=== PATIENT | female | born 1970 | race African-American/Black ===

== ENCOUNTER → 2016-06-23 | Outpatient (CLI) | payer OTHER ==
[~2016-06-23] MED LIST: CETI10TA84 PO; FOLI1TAB7 PO; LEVO25TA PO; METH2.5T PO; PRED-301 PO
[2016-06-23 12:29] LABS: BASO % 0.1 %; BASO ABS # 0.01 K/uL (0-0.2); COMPLETE YES; EOS % 3.1 %; HEMATOCRIT 43.6 % (37-47); IG% 0.2 %; LYMPH % 25.2 %; LYMPH ABS # 2.37 K/uL (1.2-3.4); MEAN CORPUSCULAR HEMOGLOBIN 30.6 pg (25-34); MEAN CORPUSCULAR HGB CONC 33.3 g/dl (32-36); MEAN PLATELET VOLUME 10.7 fL (7.4-10.4); MONO % 6.9 %; NEUT % 64.5 %; PLATELET COUNT 303 K/uL (130-400); RED BLOOD COUNT 4.74 M/uL (4.2-5.4); WHITE BLOOD COUNT 9.41 K/uL (4.8-10.8)
[2016-06-23 13:19] LABS: ALT/SGPT 43 U/L (12-78); CREATININE 0.95 mg/dl (0.60-1.20)
[2016-06-23 13:22] LABS: ALKALINE PHOSPHATASE 78 U/L (45-117); AST/SGOT 30 U/L (15-37)
== END | disposition home or self-care (01) ==
LOC: C.LAB1850 10:10
PROVIDERS: ATTEND Internal Medicine Rheumatology
DX: M06.9 Rheumatoid arthritis, unspecified (principal); M22.2X9 Patellofemoral disorders, unspecified knee; M25.561 Pain in right knee; Z79.899 Other long term (current) drug therapy

== ENCOUNTER → 2016-10-16 | Outpatient (CLI) | payer OTHER ==
[2016-10-16 10:47] LABS: BASO % 0.1 %; BASO ABS # 0.01 K/uL (0-0.2); COMPLETE YES; EOS % 1.3 %; HEMATOCRIT 43.1 % (37-47); IG% 0.4 %; LYMPH % 16.9 %; LYMPH ABS # 1.93 K/uL (1.2-3.4); MEAN CELL VOLUME 90.7 fL (80-100); MEAN CORPUSCULAR HEMOGLOBIN 31.4 pg (25-34); MEAN CORPUSCULAR HGB CONC 34.6 g/dl (32-36); MEAN PLATELET VOLUME 10.6 fL (7.4-10.4); MONO % 4.4 %; NEUT % 76.9 %; PLATELET COUNT 283 K/uL (130-400); RED BLOOD COUNT 4.75 M/uL (4.2-5.4); WHITE BLOOD COUNT 11.42 K/uL (4.8-10.8)
[2016-10-16 11:22] LABS: ALT/SGPT 32 U/L (12-78); CREATININE 0.98 mg/dl (0.60-1.20)
[2016-10-16 11:25] LABS: ALKALINE PHOSPHATASE 89 U/L (45-117); AST/SGOT 19 U/L (15-37)
== END | disposition home or self-care (01) ==
LOC: C.LAB1850 09:51
PROVIDERS: ATTEND Internal Medicine Rheumatology
DX: M06.9 Rheumatoid arthritis, unspecified (principal); M22.2X9 Patellofemoral disorders, unspecified knee; Z51.81 Encounter for therapeutic drug level monitoring; Z79.899 Other long term (current) drug therapy

== ENCOUNTER → 2017-02-16 | Outpatient (CLI) | payer OTHER ==
[~2017-02-16] MED LIST changes: -FOLI1TAB7 PO; +FOLI1TAB8 PO
--- NOTE | 2017-02-16 11:00 | DIAGNOSTIC IMAGING REPORT ---
R HAND MIN 3 VIEWS ROUTINE CLINICAL HISTORY: 46 years-old Female presenting with BILATERAL KNEE PAIN, PATELLOFEMORAL SYNDROME. TECHNIQUE: Frontal, oblique, and lateral views the right hand were obtained. COMPARISON: 06/20/2013. FINDINGS: No acute fracture or malalignment. No degenerative change. No erosions. No radiographic evidence of soft tissue abnormality. IMPRESSION: No osseous abnormality of the right hand. Electronically signed by: Sami Baldwin M.D. 02/16/2017 10:58 AM Dictated Date/Time: 02/16/2017 10:57 AM
--- NOTE | 2017-02-16 11:05 | DIAGNOSTIC IMAGING REPORT ---
L HAND MIN 3 VIEWS ROUTINE CLINICAL HISTORY: Left hand pain COMPARISON: May 2013 DISCUSSION: No acute fractures or dislocations are visualized. The bony mineralization appears normal. There are no erosive or destructive changes. There is a benign-appearing sclerotic lesion involving the fifth metacarpal. IMPRESSION: 1. No fractures identified 2. No evidence of erosive disease 3. Benign-appearing sclerotic lesion involving the fifth metacarpal, unchanged from 2013 Electronically signed by: Ming Mojica M.D. 02/16/2017 11:04 AM Dictated Date/Time: 02/16/2017 11:02 AM
== END | disposition home or self-care (01) ==
LOC: C.RAD1850 10:36
PROVIDERS: ATTEND Internal Medicine Rheumatology
DX: Z51.81 Encounter for therapeutic drug level monitoring (principal); M25.562 Pain in left knee; Z79.899 Other long term (current) drug therapy; M22.2X9 Patellofemoral disorders, unspecified knee; M06.9 Rheumatoid arthritis, unspecified

== ENCOUNTER → 2017-04-15 | Outpatient (CLI) | payer OTHER ==
--- NOTE | 2017-04-15 15:08 | MAMMOGRAPHY REPORT ---
BILATERAL DIGITAL SCREENING MAMMOGRAM TOMOSYNTHESIS WITH CAD: 04/15/2017 CLINICAL HISTORY: Routine screening. Patient has no complaints. TECHNIQUE: Breast tomosynthesis in addition to standard 2D mammography was performed. Current study was also evaluated with a Computer Aided Detection (CAD) system. COMPARISON: Comparison is made to exam dated: 06/17/2010 mammogram - [facility]. BREAST COMPOSITION: The tissue of both breasts is heterogeneously dense, which may obscure small mas ses. FINDINGS: No suspicious masses, calcifications, or areas of architectural distortion are noted in ei ther breast. There has been no significant interval change compared to prior exams. IMPRESSION: ACR BI-RADS CATEGORY 1: NEGATIVE There is no mammographic evidence of malignancy. A 1 year screening mammogram is recommended. The pa tient will receive written notification of the results. Approximately 10% of breast cancers are not detected with mammography. A negative mammographic report should not delay biopsy if a clinically suggestive mass is present. Alicia Cornell M.D. ah/:04/15/2017 12:25:43 Scoop Operator: Celina HANSEN(Rubina)([place]ilma), [facility] letter sent: Normal 1/2 BI-RADS Code: ACR BI-RADS Category 1: Negative
== END | disposition home or self-care (01) ==
LOC: C.MAMM 08:53
PROVIDERS: ATTEND Family Medicine
DX: Z12.31 Encounter for screening mammogram for malignant neoplasm of breast (principal)

== ENCOUNTER → 2017-05-25 | Outpatient (CLI) | payer OTHER ==
[2017-05-25 12:21] LABS: BASO % 0.1 %; BASO ABS # 0.01 K/uL (0-0.2); EOS % 2.2 %; EOS ABS # 0.25 K/uL (0-0.5); HEMATOCRIT 42.7 % (37-47); HEMOGLOBIN 14.8 g/dL (12.0-16.0); IG# 0.03 K/uL (0.00-0.02); LYMPH % 14.5 %; LYMPH ABS # 1.67 K/uL (1.2-3.4); MEAN CELL VOLUME 90.5 fL (80-100); MEAN CORPUSCULAR HEMOGLOBIN 31.4 pg (25-34); MEAN CORPUSCULAR HGB CONC 34.7 g/dl (32-36); MEAN PLATELET VOLUME 10.4 fL (7.4-10.4); MONO % 5.4 %; MONO ABS # 0.62 K/uL (0.11-0.59); NEUT % 77.5 %; NEUT ABS # 8.97 K/uL (1.4-6.5); PLATELET COUNT 274 K/uL (130-400); RED CELL DISTRIBUTION WIDTH CV 15.2 % (11.5-14.5); RED CELL DISTRIBUTION WIDTH SD 49.7 fL (36.4-46.3); WHITE BLOOD COUNT 11.55 K/uL (4.8-10.8)
[2017-05-25 12:34] LABS: CREATININE 0.97 mg/dl (0.60-1.20)
== END ==
LOC: C.LAB1850 10:21
PROVIDERS: ATTEND Internal Medicine Rheumatology
DX: M06.9 Rheumatoid arthritis, unspecified (principal); Z79.899 Other long term (current) drug therapy; M25.561 Pain in right knee; M25.562 Pain in left knee; M22.2X9 Patellofemoral disorders, unspecified knee